=== PATIENT | female | born 1985 | race Caucasian/White ===

== ENCOUNTER 2016-08-28 02:26 | Emergency (ER) | payer OTHER ==
[~2016-08-28] VITALS: Ht 160 cm; Wt 57.0 kg
[~2016-08-28 02:26] MED LIST: ALBU8.5H5 IH; AZIT250T6 PO; BENZ100C70 PO; PROM6.25 PO
[2016-08-28 02:31] VITALS: Ht 160 cm; Wt 57.0 kg
[2016-08-28] MEDS ORDERED: SOD CHLORIDE 0.9% 1,000 ML IV STA (03:38)
--- NOTE | 2016-08-28 03:44 | ERD ---
ER Documentation Chief Complaint Date/Time DATE: 08/28/16 TIME: 03:42 Chief Complaint lower abd pain started yesterday, denies n/v/diarrhea HPI 30-year-old female presents here in emergency department for complaint of lower abdominal pain that started yesterday. Patient described the pain as sharp pain radiating to the back, 6/10 scale, is intermittent, not better or worse with anything. Patient is approximately 4 weeks . 4 para 1 2 she knew that she was 4 days ago. Patient denies any vaginal bleeding. Patient denies any flank pain. Patient denies any nausea vomiting. ROS All systems reviewed and are negative except as per history of present illness. Medications Home Meds Active Scripts Albuterol Sulfate* (Albuterol Sulfate* HFA) 8.5 Gm Hfa.aer.ad, 2 PUFF IH Q4H Y for WHEEZING AND SOB, #1 EA Prov:ISIDRA MAGUIRE PA-C 08/09/14 Azithromycin* (Azithromycin*) 250 Mg Tablet, 250 MG PO DAILY, #4 TAB Prov:ISIDRA MAGUIRE PA-C 08/09/14 Benzonatate* (Tessalon Perle*) 100 Mg Capsule, 200 MG PO TID Y for COUGH, #30 CAP Prov:ISIDRA MAGUIRE PA-C 08/09/14 Promethazine w/Codeine* (Phenergan w/Codeine* Syrup) 5 Ml Syrup, 5 ML PO Q4H Y for COUGH, #100 ML Prov:ISIDRA MAGUIRE PA-C 08/09/14 Allergies Allergies: Coded Allergies: No Known Drug Allergies (Verified Allergy, Mild, 08/09/14) PMhx/Soc History of Surgery: Yes (C SECTION) Anesthesia Reaction: No Hx Neurological Disorder: No Hx Respiratory Disorders: No Hx Cardiac Disorders: No Hx Psychiatric Problems: No Hx Miscellaneous Medical Probl: No Hx Alcohol Use: No Hx Substance Use: No Hx Tobacco Use: Yes (2 CIGS A DAY) FmHx Family History: No coronary disease, No diabetes, No other Physical Exam Vitals Vital Signs Date Time Temp Pulse Resp B/P Pulse Ox O2 Delivery O2 Flow Rate FiO2 08/28/16 02:31 97.1 95 20 111/69 100 Physical Exam GENERAL: The patient is well developed and appropriate for usual state of health, in no apparent distress. CHEST: Clear to auscultation bilaterally. There are no rales, wheezes or rhonchi. HEART: Regular rate and rhythm. No murmurs, clicks, rubs or gallops. No S3 or S4. ABDOMEN: Soft, llower abdominal tenderness. Good bowel sounds. No rebound or guarding. No gross peritonitis. No gross organomegaly or masses. No Andre sign or McBurney point tenderness. BACK: No midline or flank tenderness. EXTREMITIES: Equal pulses bilaterally. There is no peripheral clubbing, cyanosis or edema. No focal swelling or erythema. Full range of motion. Grossly neurovascularly intact. NEURO: Alert and oriented. Cranial nerves 2-12 intact. Motor strength in all 4 extremities with 5/5 strength. Sensation grossly intact. Normal speech and gait. SKIN: There is no apparent rash or petechia. The skin is warm and dry. HEMATOLOGIC AND LYMPHATIC: There is no evidence of excessive bruising or lymphedema. No gross cervical, axillary, or inguinal lymphadenopathy. Result Diagram: 08/28/16 0413 Results 24 hrs Laboratory Tests Test 08/28/16 04:13 08/28/16 05:10 White Blood Count 8.410^3/ul Red Blood Count 3.7910^6/ul Hemoglobin 12.1g/dl Hematocrit 35.9% Mean Corpuscular Volume 94.7fl Mean Corpuscular Hemoglobin 31.9pg Mean Corpuscular Hemoglobin Concent 33.7g/dl Red Cell Distribution Width 12.0% Platelet Count 87651^3/UL Mean Platelet Volume 8.8fl Neutrophils % 46.3% Lymphocytes % 42.3% Monocytes % 6.4% Eosinophils % 4.4% Basophils % 0.5% Nucleated Red Blood Cells % 0.0/100WBC Neutrophils # 3.910^3/ul Lymphocytes # 3.610^3/ul Monocytes # 0.510^3/ul Eosinophils # 0.410^3/ul Basophils # 0.010^3/ul Nucleated Red Blood Cells # 0.010^3/ul Beta HCG, Quantitative 3244.2mIU/ml Bedside Urine pH (LAB) 6.0 Bedside Urine Protein (LAB) Negative Bedside Urine Glucose (UA) Negative Bedside Urine Ketones (LAB) Negative Bedside Urine Blood Negative Bedside Urine Nitrite (LAB) Negative Bedside Urine Leukocyte Esterase (L Negative Current Medications Medications (Trade) Dose Ordered Sig/Hank Route PRN Reason Start Time Stop Time Status Last Admin Dose Admin Sodium Chloride (NS) 1,000 ml @ 1,000 mls/hr Q1H STAT IV 08/28/16 03:38 08/28/16 04:37 DC 08/28/16 04:06 Acetaminophen (Tylenol Tab) 500 mg ONCE STAT PO 08/28/16 04:48 08/28/16 04:49 DC 08/28/16 05:15 Normal saline IV bolus was given here in emergency department for rehydration, patient tolerated IV fluids. PROCEDURE: US OB. CLINICAL INDICATION: Vaginal bleeding in . TECHNIQUE: Transabdominal and endovaginal imaging of the uterus is available for review COMPARISON: None available FINDINGS: There is a single intrauterine with a mean sac diameter of 0.4 cm, giving an estimated gestational age of 5 weeks 0 days by ultrasound criteria. No pole is detected. No subchorionic hemorrhage is identified. The ovaries are unremarkable. IMPRESSION: Single intrauterine with an estimated gestational age of 5 weeks 0 days by ultrasound criteria. No pole is identified. This may be secondary to early dates. Repeat pelvic ultrasound is recommended in 1 week. RPTAT: HH .Brenda Rodriguez MD, MD Date Time Electronically viewed and signed by .Brenda Rodriguez MD, MD on 08/28/2016 05 :17 .G/ CC: BENI CHACKO [employer]POSING [employer] SUPERVISOR Procedures/MDM Medical Decision Making: Patient's abdominal pain nonspecific at this time, can be from the groin , this time, patient is a viable without any pole, possible early . No ovarian cysts, no adnexal masses noted, no suspicion for ectopic . Beta hCG is appropriate for . Patient does not have any fever., Patient does not have any urinary tract infection. No leukocytosis, and no bandemia. There is low suspicion for abdominal emergencies at this time. Patients abdominal exam is normal at this time. Patients radiology exam does not show any abdominal emergencies at this time. There is low suspicion for appendicitis, cholecystitis, abdominal aortic aneurysms or peritonitis at this time. There is low suspicion for sepsis. Patient appears well and is hemodynamically stable. Disposition: Home. Condition: Stable Prescription Tylenol Instructions: Patient is advised to take medications as prescribed. Patient is advised to rest, increase fluid intake and do gynecology specialist for reevaluation of symptoms or repeat beta hCG level in 2 days, ultrasound needs to be repeated in one wk. Patient is advised that if symptoms are worse, severe abdominal pain, uncontrolled vomiting, high fever, severe flank pain, worst signs and symptoms, to return to the emergency department immediately. Departure Diagnosis: Primary Impression: Pelvic pain Additional Impression: Intrauterine Condition: Stable Patient Instructions: Pelvic Pain In : Unclear (2-3 Trimester) Additional Instructions: Patient is advised to take medications as prescribed. Patient is advised to rest , increase fluid intake and do gynecology specialist for reevaluation of symptoms or repeat beta hCG level in 2 days, ultrasound needs to be repeated in one wk. Patient is advised that if symptoms are worse, severe abdominal pain, uncontrolled vomiting, high fever, severe flank pain, worst signs and symptoms, to return to the emergency department immediately. BENI CHACKO NP Aug 28, 2016 03:44
[2016-08-28 04:24] LABS: ADD SCAN DIFF NO
[2016-08-28 04:45] LABS: BASOPHILS % 0.5 % (0.0-2.0); EOSINOPHILS # 0.4 10^3/ul (0.0-0.5); EOSINOPHILS % 4.4 % (0.0-7.0); HEMATOCRIT 35.9 % (37.0-47.0); HEMOGLOBIN 12.1 g/dl (12.0-16.0); LYMPHOCYTES # 3.6 10^3/ul (0.8-2.9); LYMPHOCYTES % 42.3 % (15.0-51.0); MEAN CORPUSCULAR HEMOGLOBIN 31.9 pg (29.0-33.0); MEAN CORPUSCULAR HGB CONC 33.7 g/dl (32.0-37.0); MEAN CORPUSCULAR VOLUME 94.7 fl (82.0-101.0); MEAN PLATELET VOLUME 8.8 fl (7.4-10.4); MONOCYTE # 0.5 10^3/ul (0.3-0.9); MONOCYTES % 6.4 % (0.0-11.0); NEUTROPHIL # 3.9 10^3/ul (1.6-7.5); NEUTROPHILS % 46.3 % (39.0-77.0); PLATELET COUNT 243 10^3/UL (140-415); RED BLOOD COUNT 3.79 10^6/ul (4.20-5.40); WHITE BLOOD COUNT 8.4 10^3/ul (4.8-10.8)
[2016-08-28] MEDS ORDERED: ACETAMINOPHEN 500 MG TAB PO STA (04:48)
[2016-08-28 05:04] LABS: URINE BLOOD (Dip) POC Negative (NEGATIVE)
--- NOTE | 2016-08-28 05:18 | RADRPT ---
PROCEDURE: US OB. CLINICAL INDICATION: Vaginal bleeding in . TECHNIQUE: Transabdominal and endovaginal imaging of the uterus is available for review COMPARISON: None available FINDINGS: There is a single intrauterine with a mean sac diameter of 0.4 cm, giving an estimated ges tational age of 5 weeks 0 days by ultrasound criteria. No pole is detected. No subchorionic hemorrhage is identified. The ovaries are unremarkable. IMPRESSION: Single intrauterine with an estimated gestational age of 5 weeks 0 days by ultrasound crit eria. No pole is identified. This may be secondary to early dates. Repeat pelvic ultrasound is recommended in 1 week. RPTAT: HH .Brenda Rodriguez MD, MD Date Time Electronically viewed and signed by .Brenda Rodriguez MD, on 08/28/2016 05:17 .G/
[2016-08-28] MEDS ORDERED: ACET500C5 PO (05:41)
[2016-08-28 06:09] VITALS: BP 121/64; PULSE 71; RESP 17; TEMP 97.4
== END 2016-08-28 06:11 | disposition home or self-care (01) ==
LOC: FTE 02:26
DX: O26.891 Other specified pregnancy related conditions, first trimester (principal); R10.2 Pelvic and perineal pain; F17.210 Nicotine dependence, cigarettes, uncomplicated; Z3A.01 Less than 8 weeks gestation of pregnancy
CPT/HCPCS: 36415; 76801; 76817; 81003; 84702; 85025; 86900; 86901; J7030; Z7502; Z7610